=== PATIENT | male | born 1970 | race African-American/Black ===

== ENCOUNTER 2021-03-04 10:26 | Emergency (ER) | payer OTHER ==
[~2021-03-04] VITALS: Ht 182.9 cm; Wt 92.7 kg
[2021-03-04 12:47] VITALS: BP 157/97
[2021-03-04] MEDS ORDERED: KETOROLAC 60 MG/2 ML VIAL. IM ONE (13:00)
[2021-03-04] MEDS ORDERED: ORPHENADRINE CITRATE 60 MG/2 ML VIAL. IM ONE (13:00)
[2021-03-04] MEDS ORDERED: CYCL10TA19 PO (13:11)
[2021-03-04] MEDS ORDERED: IBUP-1060 PO (13:11)
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
== END 2021-03-04 13:24 | disposition home or self-care (01) ==
LOC: ER 10:26
DX: S13.4XXA Sprain of ligaments of cervical spine, initial encounter (principal); V49.59XA Passenger injured in collision with other motor vehicles in traffic accident, initial encounter; Y93.89 Activity, other specified; Y92.488 Other paved roadways as the place of occurrence of the external cause; Y99.8 Other external cause status
CPT/HCPCS: 96372; 99283; J1885